=== PATIENT | male | born 1945 | race Caucasian/White ===

== ENCOUNTER 2022-03-08 04:26 | Emergency (ER) | payer MEDICARE ==
[~2022-03-08] VITALS: Ht 188 cm; Wt 88.5 kg
[2022-03-08] MEDS ORDERED: HYDR1TAB94 PO (06:02)
== END 2022-03-08 06:30 | disposition home or self-care (01) ==
LOC: ER 04:26
DX: S22.31XA Fracture of one rib, right side, initial encounter for closed fracture (principal); W22.09XA Striking against other stationary object, initial encounter; Z91.030 Bee allergy status
CPT/HCPCS: 71046; 96374; 96375; 99283-25; A9270; J1885; J3010